=== PATIENT | male | born 2000 | race Caucasian/White ===

== ENCOUNTER 2018-06-20 11:56 | Emergency (ER) | payer OTHER, MEDICAID ==
[2018-06-20 13:02] LABS: BASO % 0.8 % (0.0-1.0); EOS # 0.1 10^3/uL (0.0-0.50); EOS % 1.3 % (0.0-3.0); HEMATOCRIT 40.8 % (42.0-52.0); HEMOGLOBIN 13.9 g/dl (13.5-17.5); IMMATURE GRANULOCYTE % 0.2 % (0-3.0); LYMPH # 1.7 10^3/uL (1.5-6.5); LYMPH % 31.8 % (24.0-44.0); MEAN CORPUSCULAR HEMOGLOBIN 30.2 pg (27.0-33.0); MEAN CORPUSCULAR HGB CONC 34.1 g/dl (32.0-36.5); MEAN CORPUSCULAR VOLUME 88.7 fl (80.0-96.0); MONO # 0.5 10^3/uL (0.0-0.8); MONO % 9.6 % (0.0-5.0); NEUTROPHILS % 56.3 % (36.0-66.0); PLATELET COUNT, AUTOMATED 318 10^3/uL (150-450); RED CELL DISTRIBUTION WIDTH 11.9 % (11.5-14.5); WHITE BLOOD COUNT 5.3 10^3/uL (4.0-10.0)
[2018-06-20 13:15] LABS: KETONE, URINE AUTO RFX NEGATIVE (NEGATIVE); LEUKOCYTE ESTERASE UR AUTO RFX NEGATIVE (NEGATIVE); MUCUS, URINE RFX SMALL (NEGATIVE); NITRITE, URINE AUTO RFX NEGATIVE (NEGATIVE); RBC, URINE AUTO RFX 3 /HPF (0-3); SPECIFIC GRAVITY UR AUTO RFX 1.012 (1.002-1.035); SQUAM EPITHELIAL CELL UR AURFX 0 /HPF (0-6); WBC, URINE AUTO RFX 0 /HPF (0-3)
[2018-06-20 13:27] LABS: ERYTHROCYTE SEDIMENTATION RATE 2 mm/hr (0-15)
[2018-06-20 13:28] LABS: ANION GAP 5 MEQ/L (8-16); BLOOD UREA NITROGEN 9 MG/DL (7-18); CARBON DIOXIDE LEVEL 29 MEQ/L (21-32); CHLORIDE LEVEL 105 MEQ/L (98-107); CREATININE FOR GFR 0.76 MG/DL (0.70-1.30); GLUCOSE, FASTING 82 MG/DL (70-100); POTASSIUM SERUM 3.9 MEQ/L (3.5-5.1); SODIUM LEVEL 139 MEQ/L (136-145)
[2018-06-20 13:29] LABS: C REACTIVE PROTEIN QUANTITATIV < 0.30 MG/DL (0.00-0.30); CPK CREATINE PHOSPHOKINASE 113 U/L (39-308); FREE T4 1.09 NG/DL (0.78-1.33); MAGNESIUM LEVEL 2.1 MG/DL (1.4-2.0); TROPONIN I < 0.02 NG/ML (< 0.10)
[2018-06-20 13:34] LABS: CK-MB VALUE MASS < 1.0 NG/ML (<3.6); MB/CK RELATIVE INDEX 0.88 (< OR =4)
== END 2018-06-20 14:00 | disposition home or self-care (01) ==
LOC: M ED 11:56
DX: R55 Syncope and collapse (principal); Z87.820 Personal history of traumatic brain injury; G43.909 Migraine, unspecified, not intractable, without status migrainosus; Z77.098 Contact with and (suspected) exposure to other hazardous, chiefly nonmedicinal, chemicals; F12.10 Cannabis abuse, uncomplicated; Z82.0 Family history of epilepsy and other diseases of the nervous system; Z91.89 Other specified personal risk factors, not elsewhere classified
CPT/HCPCS: 70450

== ENCOUNTER 2018-08-12 01:21 | Emergency (ER) | payer OTHER ==
[2018-08-12] MEDS: ceFAZolin 1GM INJ (J0690 PER 500MG) IM (02:21)
== END 2018-08-12 02:59 | disposition home or self-care (01) ==
LOC: M ED 01:21
DX: H60.10 Cellulitis of external ear, unspecified ear (principal); F17.200 Nicotine dependence, unspecified, uncomplicated; Z91.048 Other nonmedicinal substance allergy status; Z79.899 Other long term (current) drug therapy
CPT/HCPCS: J0690